=== PATIENT | female | born 1955 | race Caucasian/White ===

== ENCOUNTER 2019-07-09 22:53 | Emergency (ER) | payer OTHER ==
[~2019-07-09] VITALS: Ht 149.9 cm; Wt 68.0 kg
[2019-07-09 23:05] VITALS: BP_SYST 160
[2019-07-10 00:14] LABS: BASOPHILS # (AUTO) 0.1 K/uL (0.0-0.2); BASOPHILS % (AUTO) 0.9 % (0.0-2.0); EOSINOPHILS # (AUTO) 0.2 K/uL (0.0-0.4); EOSINOPHILS % (AUTO) 2.3 % (0.0-4.0); HEMATOCRIT 39.1 % (36-48); HEMOGLOBIN 13.3 g/dL (12.0-16.0); LYMPHOCYTES # (AUTO) 2.9 K/uL (1.0-5.5); LYMPHOCYTES % (AUTO) 35.8 % (20.5-51.5); MEAN CORPUSCULAR HEMOGLOBIN 31 pg (27-31); MEAN CORPUSCULAR HGB CONC 34 % (32-36); MEAN CORPUSCULAR VOLUME 90 fL (79.0-98.0); MONOCYTES # (AUTO) 0.5 K/uL (0.0-1.0); MONOCYTES % (AUTO) 6.1 % (1.7-9.3); NEUTROPHILS # (AUTO) 4.5 K/uL (1.8-7.7); NEUTROPHILS % (AUTO) 54.9 % (40.0-70.0); PLATELET COUNT (AUTO) 298 K/uL (130-430); RED BLOOD CELL COUNT(AUTO) 4.37 MIL/uL (4.2-6.2); RED CELL DISTRIBUTION WIDTH 13.8 % (9.0-15.0); WHITE BLOOD COUNT (AUTO) 8.2 K/uL (4.8-10.8)
[2019-07-10 00:27] LABS: CALCIUM 9.3 mg/dL (8.4-11.0); CREATININE 0.59 mg/dL (0.55-1.30); POTASSIUM 4.5 mmol/L (3.5-5.1)
[2019-07-10 00:31] LABS: PROTHROMBIN TIME 9.9 SECS (9.5-12.5)
[2019-07-10 00:33] LABS: ALBUMIN 3.9 g/dL (3.4-4.8); TOTAL BILIRUBIN 0.5 mg/dL (0.0-1.0)
--- NOTE | 2019-07-10 00:41 | NUR ---
Placed in room 1 . Placed on cardiac rehabilitation program director, blood pressure machine and pulse oximeter. To gown for exam. Side rails up.
--- NOTE | 2019-07-10 00:49 | NUR ---
Pt complains of a headache for the last 2 days with N/V. Pt states that she had blurred vision as well. Per patient, she took a Tylenol around 7pm with no relief. No other injuries/complaints per patient or noted.
--- NOTE | 2019-07-10 01:10 | NUR ---
ER Dr. Guerrero at bedside examining patient.
[2019-07-10 01:21] LABS: BILIRUBIN,URINE NEGATIVE (NEGATIVE); BLOOD, URINE 1+ (NEGATIVE); CLARITY/URINE CLEAR (CLEAR); COLOR,URINE YELLOW (YELLOW); GLUCOSE,URINE NEGATIVE (NEGATIVE); KETONES,URINE NEGATIVE (NEGATIVE); LEUKOCYTE ESTERASE ,URINE NEGATIVE (NEGATIVE); NITRITE, URINE NEGATIVE (NEGATIVE); PROTEIN URINE NEGATIVE (NEGATIVE); UROBILINOGEN,URINE 0.2 (0.2-1.0)
[2019-07-10 01:30] LABS: BACTERIA,URINE MODERATE /HPF (None Seen); WBC,URINE 0-3 /HPF (0-3)
[2019-07-10] MEDS ORDERED: NS 500 ML IV ONE (01:45)
[2019-07-10] MEDS ORDERED: MORPHINE 2 MG/ML INJ. SYRINGE IVP ONE ×2 (01:45)
[2019-07-10] MEDS ORDERED: ONDANSETRON HCL 4 MG/2 ML VIAL IVP ONE (01:45)
--- NOTE | 2019-07-10 02:02 | NUR ---
Patient refused all medications and stated "I just want my script so I can go." Dr. Guerrero made aware.
[2019-07-10 02:20] VITALS: BP_SYST 145
--- NOTE | 2019-07-10 02:20 | NUR ---
Patient given written and verbal discharge instructions and verbalizes understanding. ER MD discussed with patient the results and treatment provided. Patient in stable condition. ID arm band removed. Rx of Pelzer and Zofran given. Patient educated on pain management and to follow up with PMD. Pain Scale 0. Opportunity for questions provided and answered. Medication side effect fact sheet provided.
== END 2019-07-10 02:20 | disposition home or self-care (01) ==
LOC: SED 22:53
DX: R51 Headache (principal)
CPT/HCPCS: 36415; 70450-TC; 71045; 80053; 81000-TC; 82962; 84484; 85025; 85610-TC; 85730-TC; 87086; 93005; 99284

== ENCOUNTER 2023-04-30 08:05 | Emergency (ER) | payer OTHER ==
[~2023-04-30] VITALS: Ht 149.9 cm; Wt 68.0 kg
[2023-04-30 08:05] VITALS: BP_SYST 114; PULSE 65; RESP 18; TEMP 98; O2SAT 98
[2023-04-30 08:44] LABS: BASOPHILS # (AUTO) 0.1 K/uL (0.0-0.2); BASOPHILS % (AUTO) 0.7 % (0.0-2.0); EOSINOPHILS # (AUTO) 0.2 K/uL (0.0-0.4); EOSINOPHILS % (AUTO) 2.1 % (0.0-4.0); HEMATOCRIT 37.1 % (36-48); HEMOGLOBIN 12.2 g/dL (12.0-16.0); LYMPHOCYTES # (AUTO) 2.9 K/uL (1.0-5.5); LYMPHOCYTES % (AUTO) 28.9 % (20.5-51.5); MEAN CORPUSCULAR HEMOGLOBIN 30 pg (27-31); MEAN CORPUSCULAR HGB CONC 33 % (32-36); MEAN CORPUSCULAR VOLUME 90 fL (79.0-98.0); MONOCYTES # (AUTO) 0.6 K/uL (0.0-1.0); MONOCYTES % (AUTO) 6.3 % (1.7-9.3); NEUTROPHILS # (AUTO) 6.2 K/uL (1.8-7.7); PLATELET COUNT (AUTO) 309 K/uL (130-430); RED BLOOD CELL COUNT(AUTO) 4.12 MIL/uL (4.2-6.2); RED CELL DISTRIBUTION WIDTH 13.6 % (9.0-15.0)
[2023-04-30 08:45] LABS: ANION GAP 6 (5-15); CALCIUM 8.5 mg/dL (8.4-11.0); CARBON DIOXIDE 29 mmol/L (23-29); CHLORIDE 102 mmol/L (98-107); CREATININE 0.69 mg/dL (0.55-1.30); GLUCOSE 164 mg/dL (74-106); POTASSIUM 3.8 mmol/L (3.5-5.1); SODIUM SERUM 137 mmol/L (136-145); UREA NITROGEN, BLOOD 13 mg/dL (8-21)
[2023-04-30 08:59] LABS: GFR AFRICAN AMERICAN 108 mL/min (>90); GFR NON AFRICAN-AMERICAN 89 mL/min (>90)
[2023-04-30 09:18] LABS: ALANINE AMINOTRANSFERASE 16 U/L (12-78); ALBUMIN 3.6 g/dL (3.4-4.8); AMYLASE 38 U/L (0-100); ASPARTATE AMINOTRANSFERASE 17 U/L (10-37); LACTATE DEHYDROGENASE 129 U/L (81-234); LIPASE 62 U/L (73-393); TOTAL PROTEIN, SERUM 7.3 g/dL (6.4-8.3)
[2023-04-30 09:44] LABS: ACETONE, SERUM NEGATIVE (NEGATIVE)
[2023-04-30] MEDS ORDERED: DOCU-144 PO (09:49)
[2023-04-30] MEDS ORDERED: IBUP-1969 PO (09:49)
[2023-04-30] MEDS ORDERED: AMOX-423 PO (09:49)
[2023-04-30] MEDS ORDERED: AMOXICILLIN/CLAVULANATE POTASSIUM 250 MG/5 ML, 75 ML BTL PO ONE (10:00)
[2023-04-30 10:11] VITALS: BP_SYST 113; PULSE 60; O2SAT 95
[2023-04-30] MEDS ORDERED: AMOXICILLIN/CLAVULANATE POTASSIUM 500 MG TABLET PO ONE (10:15)
== END 2023-04-30 10:11 | disposition home or self-care (01) ==
LOC: SED 08:05
DX: K57.92 Diverticulitis of intestine, part unspecified, without perforation or abscess without bleeding (principal); R10.9 Unspecified abdominal pain; K59.00 Constipation, unspecified; Z88.8 Allergy status to other drugs, medicaments and biological substances; Z79.899 Other long term (current) drug therapy
CPT/HCPCS: 36415; 76376; 80053; 82009; 82150; 83605; 83615; 83690; 84484; 85025; 99284

== ENCOUNTER 2023-11-06 20:13 | Emergency (ER) | payer OTHER ==
[~2023-11-06] VITALS: Ht 149.9 cm; Wt 68.0 kg
[~2023-11-06 20:13] MED LIST: AMOX-423 PO; DOCU-144 PO; IBUP-1969 PO
[2023-11-06 20:25] VITALS: BP_SYST 114; PULSE 61; RESP 18; TEMP 97.1; O2SAT 95
[2023-11-06] MEDS: traMADol HCL HCL 50 MG TABLET (ULTRAM) PO ONE (21:39)
[2023-11-06 21:58] VITALS: TEMP 97.7
[2023-11-06 23:50] VITALS: BP_SYST 110; PULSE 63; RESP 18; O2SAT 95
== END 2023-11-06 23:50 | disposition home or self-care (01) ==
LOC: SED 20:13
DX: S80.01XA Contusion of right knee, initial encounter (principal); S80.02XA Contusion of left knee, initial encounter; S00.83XA Contusion of other part of head, initial encounter; S30.0XXA Contusion of lower back and pelvis, initial encounter; Z79.899 Other long term (current) drug therapy; W01.0XXA Fall on same level from slipping, tripping and stumbling without subsequent striking against object, initial encounter; Y93.89 Activity, other specified; Y92.89 Other specified places as the place of occurrence of the external cause; Y99.8 Other external cause status
CPT/HCPCS: 70450-TC; 72100; 72170-TC; 99284